=== PATIENT | male | born 1955 | race African-American/Black ===

== ENCOUNTER 2017-09-06 07:55 | Emergency (ER) | payer MEDICARE, MEDICAID ==
[2017-09-06] MEDS: DIPHTH,PERTUSS(ACELL),TET TOX 0.5 ML DISP.SYRIN. VAX IM (08:42)
== END 2017-09-06 09:45 | disposition home or self-care (01) ==
LOC: ER 07:55
DX: S63.610A Unspecified sprain of right index finger, initial encounter (principal); W00.9XXA Unspecified fall due to ice and snow, initial encounter; Y93.89 Activity, other specified; Y92.89 Other specified places as the place of occurrence of the external cause; Y99.8 Other external cause status
CPT/HCPCS: 29130; 73140; 90471; 90715; 99284-25

== ENCOUNTER 2017-11-17 12:03 | Emergency (ER) | payer MEDICARE, MEDICAID ==
[2017-11-17 12:56] LABS: BASO % 0 % (0-3); EOS % 0 % (0-3); HEMATOCRIT 33.9 % (39.0-53.0); HEMOGLOBIN 11.3 g/dL (13.0-17.5); LYMPH # 0.9 x10^3/uL (1.0-4.8); LYMPH % 5 % (24-48); MEAN CORPUSCULAR HEMOGLOBIN 33 pg (25-35); MEAN CORPUSCULAR HGB CONC 33 g/dL (31-37); MEAN CORPUSCULAR VOLUME 97 fL (79-100); MONO # 2.1 x10^3/uL (0.0-1.1); MONO % 11 % (0-9); NEUT # 16.2 x10^3uL (1.8-7.7); NEUT % 84 % (31-73); PLATELET COUNT 277 x10^3/uL (140-400); RED BLOOD COUNT 3.48 x10^6/uL (4.30-5.70); RED CELL DISTRIBUTION WIDTH 12.9 % (11.5-14.5); WHITE BLOOD COUNT 19.3 x10^3/uL (4.0-11.0)
[2017-11-17 12:58] LABS: BILIRUBIN,URINE NEGATIVE (NEG); CLARITY,URINE CLEAR; COLOR,URINE YELLOW; GLUCOSE,URINE NEGATIVE (NEG); NITRITE,URINE NEGATIVE (NEG); PROTEIN,URINE 100 mg/dL (NEG-TRACE)
[2017-11-17] MEDS: ONDANSETRON PF 4 MG/2 ML VIAL. IV (12:58)
[2017-11-17] MEDS: fentaNYL PF VIAL 100 MCG/2 ML VIAL IV (12:58)
[2017-11-17] MEDS: IV NORMAL SALINE 500ML BAG 500 ML IV (12:59)
[2017-11-17] MEDS ORDERED: CONTRAST GIVEN MC (13:00)
[2017-11-17 13:04] LABS: ADD MAN DIFF? YES
[2017-11-17 13:08] LABS: ANION GAP 12 (6-14); BLOOD UREA NITROGEN 15 mg/dL (8-26); BUN/CREATININE RATIO 9 (6-20); CALCIUM 8.9 mg/dL (8.5-10.1); CARBON DIOXIDE 24 mmol/L (21-32); CHLORIDE 98 mmol/L (98-107); CREATININE 1.6 mg/dL (0.7-1.3); GFR 53.3; GLUCOSE 152 mg/dL (70-99); POTASSIUM 3.6 mmol/L (3.5-5.1); SODIUM 134 mmol/L (136-145)
[2017-11-17 13:14] LABS: ALBUMIN 3.2 g/dL (3.4-5.0); ALBUMIN/GLOBULIN RATIO 0.7 (1.0-1.7); ALK PHOS 55 U/L (46-116); ALT (SGPT) 62 U/L (16-63); AST (SGOT) 34 U/L (15-37); LIPASE 160 U/L (73-393); TOTAL BILIRUBIN 0.8 mg/dL (0.2-1.0); TOTAL PROTEIN 8.1 g/dL (6.4-8.2)
[2017-11-17 13:17] LABS: LACTIC ACID 1.2 mmol/L (0.4-2.0)
[2017-11-17 13:18] LABS: TROPONINI < 0.017 ng/mL (0.000-0.055)
[2017-11-17 13:22] LABS: BACTERIA,URINE 0 /HPF (0-FEW); RBC,URINE 0 /HPF (0-2); SQUAMOUS EPITHELIAL CELL,UR FEW /LPF; TRICHOMONAS,URINE PRESENT; WBC,URINE 0 /HPF (0-4)
[2017-11-17] MEDS: IOHEXOL 300 MG/ML 100ML VIAL. IV (13:28)
[2017-11-17 14:07] LABS: % BANDS 14 % (0-9); % BASOS 1 % (0-3); % LYMPHS 3 % (24-48); % MONOS 11 % (0-10); % SEGS 71 % (35-66); PLT ESTIMATE ADEQUATE (ADEQUATE)
[2017-11-17 14:32] LABS: NT-PRO BNP 399 pg/mL (0-124)
[2017-11-17] MEDS: AZITHRMYCN 500MG IVPB FOR OMNI 250 ML IV (14:32)
== END 2017-11-17 15:49 | disposition home or self-care (01) ==
LOC: ER 12:03
DX: J15.9 Unspecified bacterial pneumonia (principal); R10.33 Periumbilical pain; D72.829 Elevated white blood cell count, unspecified; E78.00 Pure hypercholesterolemia, unspecified; I10 Essential (primary) hypertension; I25.10 Atherosclerotic heart disease of native coronary artery without angina pectoris; Z95.5 Presence of coronary angioplasty implant and graft
CPT/HCPCS: 36415; 71045; 74177; 80053; 81001; 83605; 83690; 83880; 84484; 85007; 85025; 93005; 96361; 96365; 96367; 96375; 99285-25; J0456; J0690; J2405; J3010; J7040; Q9967

== ENCOUNTER 2018-08-25 11:48 | Emergency (ER) | payer MEDICARE, MEDICAID ==
[~2018-08-25] VITALS: Ht 177.8 cm; Wt 90.7 kg
[~2018-08-25 11:48] MED LIST: ASPI325T8 PO; CEPH500C PO; CLOP75TA PO; LEVO750T31 PO; LISI-334 PO; SPIR25TA5 PO
[2018-08-25 12:00] VITALS: BP 184/100
[2018-08-25] MEDS ORDERED: ERYT1OIN6 OP (12:20)
--- NOTE | 2018-08-25 12:20 | PHYS DOC ---
Past Medical History Past Medical History: High Cholesterol, Hypertension Past Surgical History: Other Additional Past Surgical Histo: cardiac cath with stent Alcohol Use: Occasionally Drug Use: None Adult General Chief Complaint Chief Complaint: [facility] HPI Patient is a 62 year old male who presents with left bottom lid outer eye right side for the last 2 days. He states his started as a small knot and has gotten bigger. Denies any pain or visual changes. Patient rates his pain a 0 out of 10. No known drug allergies. Review of Systems Review of Systems Constitutional: Denies fever or chills [] Eyes: Denies change in visual acuity, redness, or eye pain. Stye with some swelling to the left lower lid. [] HENT: Denies nasal congestion or sore throat [] Respiratory: Denies cough or shortness of breath [] Cardiovascular: No additional information not addressed in HPI [] GI: Denies abdominal pain, nausea, vomiting, bloody stools or diarrhea [] : Denies dysuria or hematuria [] Musculoskeletal: Denies back pain or joint pain [] Integument: Denies rash or skin lesions [] Neurologic: Denies headache, focal weakness or sensory changes [] Endocrine: Denies polyuria or polydipsia [] All other systems were reviewed and found to be within normal limits, except as documented in this note. Allergies Allergies Allergies Coded Allergies Type Severity Reaction Last Updated Verified No Known Drug Allergies 12/19/15 No Physical Exam Physical Exam Constitutional: Well developed, well nourished, no acute distress, non-toxic appearance. [] HENT: Normocephalic, atraumatic, bilateral external ears normal, oropharynx moist, no oral exudates, nose normal. [] Eyes: PERRLA, EOMI, conjunctiva normal, no discharge.Reddened Stye with some swelling to the left lower lid [] Neck: Normal range of motion, no tenderness, supple, no stridor. [] Cardiovascular:Heart rate regular rhythm, no murmur [] Lungs & Thorax: Bilateral breath sounds clear to auscultation [] Abdomen: Bowel sounds normal, soft, no tenderness, no masses, no pulsatile masses. [] Skin: Warm, dry, no erythema, no rash. [] Back: No tenderness, no CVA tenderness. [] Extremities: No tenderness, no cyanosis, no clubbing, ROM intact, no edema. [] Neurologic: Alert and oriented X 3, normal motor function, normal sensory function, no focal deficits noted. [] Psychologic: Affect normal, judgement normal, mood normal. [] Current Patient Data Vital Signs Vital Signs Date Time Temp Pulse Resp B/P (MAP) Pulse Ox O2 Delivery O2 Flow Rate FiO2 08/25/18 12:00 98.8 90 18 184/100 (128) 98 Room Air 98.8 EKG EKG [] Radiology/Procedures Radiology/Procedures [] Course & Med Decision Making Course & Med Decision Making Patient is a 62 year old male who presents with left bottom lid outer eye right side for the last 2 days. He states his started as a small knot and has gotten bigger. Denies any pain or visual changes. Patient rates his pain a 0 out of 10. No known drug allergies. There is no scleral redness or discharge from the eye. Eye itself does not hurt. Patient is diagnosed with a probable Stye. Patient is told to use warm compress as often as he can eye and use the Erythromycin ointment as prescribed. Patient will follow up with his primary care on Tuesday or return to ED if not getting better. Dragon Disclaimer Dragon Disclaimer This electronic medical record was generated, in whole or in part, using a voice recognition dictation system. Departure Departure Impression: Primary Impression: Hordeolum externum (stye) Disposition: HOME, SELF-CARE Condition: STABLE Referrals: HOWIE GILES MD (PCP) Patient Instructions: Sty Additional Instructions: Use a warm compress. Use medications as prescribed. Follow up with your primary care if not getting better. Scripts Erythromycin Base (Erythromycin) 1 Gm Oint...g. 1 GM OP 6XDAY for 7 Days, #1 MISC Prov: MERRILL MEMBRENO MANAGER OF PHOTOGRAPHY 08/25/18 Problem Qualifiers Primary Impression: Hordeolum externum (stye) Laterality: left Eyelid: lower Qualified Codes: H00.015 - Hordeolum externum left lower eyelid MERRILL MEMBRENO APRN Aug 25, 2018 12:20
== END 2018-08-25 12:30 | disposition home or self-care (01) ==
LOC: ER 11:48
DX: H00.015 Hordeolum externum left lower eyelid (principal); E78.00 Pure hypercholesterolemia, unspecified; I10 Essential (primary) hypertension
CPT/HCPCS: 99283

== ENCOUNTER 2019-09-20 15:08 | Emergency (ER) | payer MEDICARE, MEDICAID ==
[~2019-09-20] VITALS: Ht 177.8 cm; Wt 45.5 kg
[~2019-09-20 15:08] MED LIST changes: +ERYT1OIN6 OP
[2019-09-20] MEDS ORDERED: LABETALOL 20 MG/4 ML DISP.SYRIN. IVP ONE (15:45)
[2019-09-20] MEDS ORDERED: ONDANSETRON PF 4 MG/2 ML VIAL. IVP ONE (15:45)
[2019-09-20] MEDS ORDERED: FAMOTIDINE 20 MG/2 ML VIAL IVP ONE (15:45)
[2019-09-20] MEDS ORDERED: MORPHINE SULFATE 2 MG/ML VIAL. IV/SQ PRN (15:45)
[2019-09-20 15:54] LABS: BARBITURATES NEG (NEG); BENZODIAZEPINES NEG (NEG); CANNABINOIDS POS (NEG); COCAINE NEG (NEG); METHADONE NEG (NEG); OPIATES NEG (NEG); PHENCYCLIDINE NEG (NEG)
[2019-09-20 15:56] LABS: AMPHETAMINE/METHAMPHETAMINE NEG (NEG); BILIRUBIN,URINE SMALL (NEG); CLARITY,URINE CLEAR; COLOR,URINE AMBER; NITRITE,URINE NEGATIVE (NEG); PH,URINE 6.5; PROTEIN,URINE >=300 mg/dL (NEG-TRACE)
[2019-09-20 16:04] LABS: BACTERIA,URINE 0 /HPF (0-FEW); RBC,URINE RARE /HPF (0-2); WBC,URINE 0 /HPF (0-4)
--- NOTE | 2019-09-20 16:06 | EKG ---
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
[2019-09-20 16:11] LABS: BASO # 0.1 x10^3/uL (0.0-0.2); BASO % 1 % (0-3); EOS # 0.1 x10^3/uL (0.0-0.7); EOS % 2 % (0-3); HEMOGLOBIN 13.9 g/dL (13.0-17.5); LYMPH # 1.2 x10^3/uL (1.0-4.8); LYMPH % 15 % (24-48); MEAN CORPUSCULAR HEMOGLOBIN 33 pg (25-35); MEAN CORPUSCULAR HGB CONC 33 g/dL (31-37); MEAN CORPUSCULAR VOLUME 99 fL (79-100); MONO # 0.9 x10^3/uL (0.0-1.1); MONO % 11 % (0-9); NEUT # 5.7 x10^3/uL (1.8-7.7); NEUT % 71 % (31-73); PLATELET COUNT 256 x10^3/uL (140-400); RED BLOOD COUNT 4.25 x10^6/uL (4.30-5.70); RED CELL DISTRIBUTION WIDTH 13.7 % (11.5-14.5); WHITE BLOOD COUNT 8.1 x10^3/uL (4.0-11.0)
[2019-09-20 16:22] LABS: PROTHROMBIN TIME PATIENT 15.8 SEC (11.7-14.0)
[2019-09-20 16:27] LABS: CALCIUM 8.7 mg/dL (8.5-10.1); CREATININE 1.5 mg/dL (0.7-1.3); POTASSIUM 4.1 mmol/L (3.5-5.1)
[2019-09-20] MEDS ORDERED: IOHEXOL 300 MG/ML 100ML VIAL. IV ONE (16:30)
[2019-09-20 16:32] LABS: MAGNESIUM 1.9 mg/dL (1.8-2.4); TOTAL PROTEIN 6.1 g/dL (6.4-8.2)
[2019-09-20] MEDS ORDERED: CONTRAST GIVEN. MC PRN (16:45)
[2019-09-20 16:52] VITALS: BP 141/99
--- NOTE | 2019-09-20 17:10 | RAD ---
Exam: CT abdomen and pelvis with contrast INDICATION: Abdominal pain, distention TECHNIQUE: Sequential axial images through the abdomen and pelvis obtained following the administration of 60 mL of Omni 300 IV contrast. Sagittal and coronal reformatted images were reconstructed from the axial data and reviewed. Comparisons: 11/17/2017 FINDINGS: Heart is enlarged. No pericardial effusion. Mild groundglass centrilobular opacities are noted at the lung bases. There is a trace right-sided pleural effusion. Diffuse hepatic steatosis. Spleen, pancreas, and gallbladder are unremarkable. There is nodular thickening of the adrenal glands bilaterally greater on the left, which is stable in appearance compared study in 2018 however incompletely characterized on this exam. Kidneys demonstrate symmetric enhancement. No perinephric inflammation or hydronephrosis. No renal or ureteral calculi are identified. Bladder is decompressed not well evaluated. Prostate is mildly enlarged. Few scattered diverticula are noted throughout the colon without evidence of acute diverticulitis. Appendix is normal. Remainder of the large and small bowel are unremarkable. There is trace free fluid in the pelvis. No free intra-abdominal air. Abdominal aorta has a normal course and caliber. Exam is predominantly in the arterial phase with reflux of contrast noted into the intrahepatic IVC and hepatic veins. No suspicious osseous lesions or acute fractures. IMPRESSION: 1. There is trace free fluid in the abdomen, which is nonspecific and overall given the other findings is favored to be related to a degree of volume overload. The possibility of free fluid secondary to a nonvisualized inflammatory process is possible. Correlate with symptomatology and if symptoms persist or worsen repeat imaging can be performed. 2. This exam is in the arterial phase despite delayed imaging. Additionally there is reflux of contrast into the intrahepatic IVC and hepatic veins from the heart. This is indicative of heart failure. 3. Subtle centrilobular Groundglass opacity at the lung bases and a trace right-sided pleural effusion favored to represent pulmonary edema. An atypical infectious process is difficult to exclude. 4. Hepatic steatosis. 5. Diverticulosis without evidence of acute diverticulitis. 6. Bilateral adrenal nodules which are stable when compared to study in 2018 however incompletely characterized on this study. Exposure: One or more of the following in the visualized dose reduction techniques were utilized for this examination: 1. Automated exposure control 2. Adjustment of the MA and/or KV according to patient size 3. Use of iterative of reconstructive technique Electronically signed by: Carlee Garcia MD (09/20/2019 5:07 PM) [facility]
--- NOTE | 2019-09-20 17:33 | PHYS DOC ---
Past Medical History Past Medical History: CAD, High Cholesterol, Hypertension Past Surgical History: Other Additional Past Surgical Histo: cardiac cath with stent Alcohol Use: Occasionally Drug Use: None Adult General Chief Complaint Chief Complaint: ABDOMINAL PAIN HPI HPI Patient is a 64 year old male with history of hypertension, high cholesterol, non cardiac cardiomyopathy, CHF, stent placement over 5 years ago who presents to the ED today complaining of intermittent episodes of abdominal distention, discomfort, patient states symptoms have been going on for 2 weeks. She denies any pain he states the abdomen just feels swollen, denies any nausea vomiting or constipation. Denies any exacerbating or relieving factors. He reports right now he is on Xareltro and lisinopril and follows up with Dr. Barahona who he reports sore him a week ago. Review of Systems Review of Systems Constitutional: Denies fever or chills [] Eyes: Denies change in visual acuity, redness, or eye pain [] HENT: Denies nasal congestion or sore throat [] Respiratory: Denies cough or shortness of breath [] Cardiovascular: No additional information not addressed in HPI [] GI: Reports abdominal distention, denies nausea, vomiting, bloody stools or diarrhea [] : Denies dysuria or hematuria [] Musculoskeletal: Denies back pain or joint pain [] Integument: Denies rash or skin lesions [] Neurologic: Denies headache, focal weakness or sensory changes [] All other systems were reviewed and found to be within normal limits, except as documented in this note. Current Medications Current Medications Current Medications Medications (Trade) Dose Ordered Sig/[place] Start Time Stop Time Status Last Admin Dose Admin Famotidine (Pepcid Vial) 20 mg 1X ONCE 09/20/19 15:45 09/20/19 15:46 DC 09/20/19 16:04 20 MG Info (CONTRAST GIVEN -- Rx MONITORING) 1 each PRN DAILY PRN 09/20/19 16:45 09/20/19 18:21 DC Iohexol (Omnipaque 300 Mg/ml) 60 ml 1X ONCE 09/20/19 16:30 09/20/19 16:31 DC 09/20/19 16:38 60 ML Labetalol HCl (Normodyne Iv Push) 10 mg 1X ONCE 09/20/19 15:45 09/20/19 15:46 DC 09/20/19 16:21 10 MG Morphine Sulfate (Morphine Sulfate) 2 mg PRN Q15MIN PRN 09/20/19 15:45 09/20/19 18:21 DC 09/20/19 16:02 2 MG Ondansetron HCl (Zofran) 4 mg 1X ONCE 09/20/19 15:45 09/20/19 15:46 DC 09/20/19 16:01 4 MG Allergies Allergies Allergies Coded Allergies Type Severity Reaction Last Updated Verified No Known Drug Allergies 12/19/15 No Physical Exam Physical Exam Constitutional: Well developed, well nourished, no acute distress, non-toxic appearance. [] HENT: Normocephalic, atraumatic, bilateral external ears normal, oropharynx moist, no oral exudates, nose normal. [] Eyes: PERRLA, EOMI, conjunctiva normal, no discharge. [] Neck: Normal range of motion, no tenderness, supple, no stridor. [] Cardiovascular:Heart rate regular rhythm, no murmur [] Lungs & Thorax: Bilateral breath sounds clear to auscultation [] Abdomen: Rounded distended abdomen. Bowel sounds normal, soft, no tenderness, no masses, no pulsatile masses. [] Skin: Warm, dry, no erythema, no rash. [] Back: No tenderness, no CVA tenderness. [] Extremities: No tenderness, no cyanosis, no clubbing, ROM intact, no edema. [] Neurologic: Alert and oriented X 3, normal motor function, normal sensory function, no focal deficits noted. [] Psychologic: Affect normal, judgement normal, mood normal. [] Current Patient Data Vital Signs Vital Signs Date Time Temp Pulse Resp B/P (MAP) Pulse Ox O2 Delivery O2 Flow Rate FiO2 09/20/19 16:52 84 18 141/99 (113) 99 Room Air 09/20/19 15:38 97.4 97.4 Lab Values Laboratory Tests Test 09/20/19 15:26 09/20/19 16:00 Urine Collection Type Void Urine Color Rachel Urine Clarity Clear Urine pH 6.5 Urine Specific [place] >=1.030 Urine Protein >=300 mg/dL (NEG-TRACE) Urine Glucose (UA) Negative mg/dL (NEG) Urine Ketones (Stick) Negative mg/dL (NEG) Urine Blood Negative (NEG) Urine Nitrite Negative (NEG) Urine Bilirubin Small (NEG) Urine Urobilinogen Dipstick 1.0 mg/dL (0.2 mg/dL) Urine Leukocyte Esterase Negative (NEG) Urine RBC Rare /HPF (0-2) Urine WBC 0 /HPF (0-4) Urine Squamous Epithelial Cells None /LPF Urine Bacteria 0 /HPF (0-FEW) Urine Mucus Slight /LPF Urine Opiates Screen Neg (NEG) Urine Methadone Screen Neg (NEG) Urine Barbiturates Neg (NEG) Urine Phencyclidine Screen Neg (NEG) Urine Amphetamine/Methamphetamine Neg (NEG) Urine Benzodiazepines Screen Neg (NEG) Urine Cocaine Screen Neg (NEG) Urine Cannabinoids Screen Pos (NEG) Urine Ethyl Alcohol Neg (NEG) White Blood Count 8.1 x10^3/uL (4.0-11.0) Red Blood Count 4.25 x10^6/uL (4.30-5.70) L Hemoglobin 13.9 g/dL (13.0-17.5) Hematocrit 42.0 % (39.0-53.0) Mean Corpuscular Volume 99 fL (79-100) Mean Corpuscular Hemoglobin 33 pg (25-35) Mean Corpuscular Hemoglobin Concent 33 g/dL (31-37) Red Cell Distribution Width 13.7 % (11.5-14.5) Platelet Count 256 x10^3/uL (140-400) Neutrophils (%) (Auto) 71 % (31-73) Lymphocytes (%) (Auto) 15 % (24-48) L Monocytes (%) (Auto) 11 % (0-9) H Eosinophils (%) (Auto) 2 % (0-3) Basophils (%) (Auto) 1 % (0-3) Neutrophils # (Auto) 5.7 x10^3/uL (1.8-7.7) Lymphocytes # (Auto) 1.2 x10^3/uL (1.0-4.8) Monocytes # (Auto) 0.9 x10^3/uL (0.0-1.1) Eosinophils # (Auto) 0.1 x10^3/uL (0.0-0.7) Basophils # (Auto) 0.1 x10^3/uL (0.0-0.2) Prothrombin Time 15.8 SEC (11.7-14.0) H Prothrombin Time INR 1.3 (0.8-1.1) H Activated Partial Thromboplast Time 29 SEC (24-38) Sodium Level 141 mmol/L (136-145) Potassium Level 4.1 mmol/L (3.5-5.1) Chloride Level 104 mmol/L (98-107) Carbon Dioxide Level 27 mmol/L (21-32) Anion Gap 10 (6-14) Blood Urea Nitrogen 18 mg/dL (8-26) Creatinine 1.5 mg/dL (0.7-1.3) H Estimated GFR (Cockcroft-Gault) 57.0 BUN/Creatinine Ratio 12 (6-20) Glucose Level 129 mg/dL (70-99) H Calcium Level 8.7 mg/dL (8.5-10.1) Magnesium Level 1.9 mg/dL (1.8-2.4) Total Bilirubin 1.0 mg/dL (0.2-1.0) Aspartate Amino Transferase (AST) 35 U/L (15-37) Alanine Aminotransferase (ALT) 63 U/L (16-63) Alkaline Phosphatase 66 U/L (46-116) Creatine Kinase 260 U/L (39-308) Creatine Kinase MB (Mass) 3.3 ng/mL (0.0-3.6) Creatine Kinase MB Relative Index 1.3 % (0-4) Troponin I Quantitative 0.183 ng/mL (0.000-0.055) FD-Isn-W-Type Natriuretic Peptide 2306 pg/mL (0-124) H Total Protein 6.1 g/dL (6.4-8.2) L Albumin 3.0 g/dL (3.4-5.0) L Albumin/Globulin Ratio 1.0 (1.0-1.7) Lipase 177 U/L (73-393) Thyroid Stimulating Hormone (TSH) 2.712 uIU/mL (0.358-3.74) Laboratory Tests 09/20/19 16:00 Laboratory Tests 09/20/19 16:00 EKG EKG [address] Leonard sinus tachycardia HR 111 no STEMI[] Radiology/Procedures Radiology/Procedures []PROCEDURE: CT ABD PELV W/ IV CONTRST ONLY Exam: CT abdomen and pelvis with contrast INDICATION: Abdominal pain, distention TECHNIQUE: Sequential axial images through the abdomen and pelvis obtained following the administration of 60 mL of Omni 300 IV contrast. Sagittal and coronal reformatted images were reconstructed from the axial data and reviewed. Comparisons: 11/17/2017 FINDINGS: Heart is enlarged. No pericardial effusion. Mild groundglass centrilobular opacities are noted at the lung bases. There is a trace right-sided pleural effusion. Diffuse hepatic steatosis. Spleen, pancreas, and gallbladder are unremarkable. There is nodular thickening of the adrenal glands bilaterally greater on the left, which is stable in appearance compared study in 2018 however incompletely characterized on this exam. Kidneys demonstrate symmetric enhancement. No perinephric inflammation or hydronephrosis. No renal or ureteral calculi are identified. Bladder is decompressed not well evaluated. Prostate is mildly enlarged. Few scattered diverticula are noted throughout the colon without evidence of acute diverticulitis. Appendix is normal. Remainder of the large and small bowel are unremarkable. There is trace free fluid in the pelvis. No free intra-abdominal air. Abdominal aorta has a normal course and caliber. Exam is predominantly in the arterial phase with reflux of contrast noted into the intrahepatic IVC and hepatic veins. No suspicious osseous lesions or acute fractures. IMPRESSION: 1. There is trace free fluid in the abdomen, which is nonspecific and overall given the other findings is favored to be related to a degree of volume overload. The possibility of free fluid secondary to a nonvisualized inflammatory process is possible. Correlate with symptomatology and if symptoms persist or worsen repeat imaging can be performed. 2. This exam is in the arterial phase despite delayed imaging. Additionally there is reflux of contrast into the intrahepatic IVC and hepatic veins from the heart. This is indicative of heart failure. 3. Subtle centrilobular Groundglass opacity at the lung bases and a trace right-sided pleural effusion favored to represent pulmonary edema. An atypical infectious process is difficult to exclude. 4. Hepatic steatosis. 5. Diverticulosis without evidence of acute diverticulitis. 6. Bilateral adrenal nodules which are stable when compared to study in 2018 however incompletely characterized on this study. Exposure: One or more of the following in the visualized dose reduction techniques were utilized for this examination: 1. Automated exposure control 2. Adjustment of the MA and/or KV according to patient size 3. Use of iterative of reconstructive technique Electronically signed by: Carlee Martin MD (09/20/2019 5:07 PM) [facility] DICTATED and SIGNED BY: CARLEE MARTIN MD DATE: 09/20/19 8762 Course & Med Decision Making Course & Med Decision Making Pertinent Labs and Imaging studies reviewed. (See chart for details) This is a 64-year-old male patient presenting to the ED today complaining of abdominal discomfort/distention, symptoms for 2 weeks. Patient denies any chest pain. CBC with a normal WBC, CMP with creatinine of 1.5, BUN is normal. Creatinine is around patient's baseline. Troponin is 0.183, EKG was negative, patient has no chest pain, currently on Xareltro for CAD. [id number]. I talked to Dr. Patino regarding his troponin in assumption he will accept admission. CT of the abdomen and pelvic was noted for nonspecific trace amount of free fl uid in the abdomen possibly secondary to inflammation process or fluid overload. Patient reports history of fluid overload, he reports he used to be on a water pill but was discontinued by cardiology, CT also noted for heart failure, diverticulosis, hepatic stenosis. Patient was offered admission to the hospital, he completely refused. He states he can call his own doctor tomorrow morning and follow-up. Dragon Disclaimer Dragon Disclaimer This electronic medical record was generated, in whole or in part, using a voice recognition dictation system. Departure Departure Impression: Primary Impression: CHF (congestive heart failure) Additional Impressions: Abdominal pain NSTEMI (non-ST elevated myocardial infarction) Disposition: HOME, SELF-CARE Condition: STABLE Referrals: HOWIE GILES MD (PCP) follow up as soon as you can Patient Instructions: Abdominal Pain (Nonspecific), Heart Failure, [id number] Additional Instructions: You were evaluated in the emergency room for abdominal pain, you have congestive heart failure. Please call the [facility] specialist tomorrow morning and set up a follow-up appointment. Problem Qualifiers Primary Impression: CHF (congestive heart failure) Heart failure type: unspecified Heart failure chronicity: unspecified Qualified Codes: I50.9 - Heart failure, unspecified Additional Impressions: Abdominal pain Abdominal location: generalized Qualified Codes: R10.84 - Generalized abdominal pain TUTU VALDEZ JAME Sep 20, 2019 17:33
== END 2019-09-20 18:21 | disposition home or self-care (01) ==
LOC: ER 15:08
DX: I21.4 Non-ST elevation (NSTEMI) myocardial infarction (principal); I50.9 Heart failure, unspecified; I11.0 Hypertensive heart disease with heart failure; R10.84 Generalized abdominal pain; E78.00 Pure hypercholesterolemia, unspecified; I25.10 Atherosclerotic heart disease of native coronary artery without angina pectoris; Z95.5 Presence of coronary angioplasty implant and graft
CPT/HCPCS: 36415; 74177; 80053; 80307; 81001; 82553; 83690; 83735; 83880; 84443; 84484; 85025; 85610; 85730; 93005; 96374; 96375; 99285; J2270; J2405; J3490; Q9967; 96372

== ENCOUNTER 2020-05-04 11:01 | Emergency (ER) | payer MEDICARE, MEDICAID ==
[~2020-05-04] VITALS: Ht 175.3 cm; Wt 97.2 kg
[~2020-05-04 11:01] MED LIST changes: +AMLO5TAB10 PO; +ATOR20TA58 PO; +FURO40TA4 PO; +METO-247 PO; +POTA20TA4 PO; +RIVA10TA PO
[2020-05-04 12:04] VITALS: BP 171/81
--- NOTE | 2020-05-04 12:47 | RAD ---
HIP RIGHT 2V WITH PELVIS History: Reason: pain / Spl. Instructions: / History: Technique: AP view the pelvis and 2 additional views of the right hip Comparison: None. Findings: Normal alignment. No fracture. Soft tissues unremarkable. Mild left hip DJD. Impression: 1. No acute osseous abnormality. Electronically signed by: Beto Carter DO (05/04/2020 12:44 PM) [facility]
--- NOTE | 2020-05-04 13:08 | PHYS DOC ---
Past Medical History Past Medical History: CAD, DVT, High Cholesterol, Hypertension Past Surgical History: Other Additional Past Surgical Histo: cardiac cath with stent, STENT FOR DVT RLE Smoking Status: Never Smoker Alcohol Use: Occasionally Drug Use: None General Adult EDM: Chief Complaint: HIP PAIN HPI: HPI: Patient is a 64 year old male with history of high cholesterol, hypertension, CAD with stent placement through the right lower extremity a couple years ago, DVT who presents the ED today complaining of 6 out of 10 right hip pain r adiating to the right calf, pain began yesterday. Patient states the pain is worse on twisting or turning around. Patient denies anything specifically relieving the pain, describes the pain as sharp. He states the pain is intermittent. He is concerned he could have a DVT considering his previous medical history of DVT. He states he is currently on a blood thinner but does not remember the name Review of Systems: Review of Systems: Constitutional: Denies fever or chills. [] Eyes: Denies change in visual acuity. [] HENT: Denies nasal congestion or sore throat. [] Respiratory: Denies cough or shortness of breath. [] Cardiovascular: Denies chest pain or edema. [] GI: Denies abdominal pain, nausea, vomiting, bloody stools or diarrhea. [] : Denies dysuria. [] Musculoskeletal: Reports right rib pain radiating to the right calf Integument: Denies rash. [] Neurologic: Denies headache, focal weakness or sensory changes. [] Psychiatric: Denies depression or anxiety. [] Heart Score: Risk Factors: Risk Factors: DM, Current or recent (<one month) smoker, HTN, HLP, family history of CAD, obesity. Risk Scores: Score 0 - 3: 2.5% MACE over next 6 weeks - Discharge Home Score 4 - 6: 20.3% MACE over next 6 weeks - Admit for Clinical Observation Score 7 - 10: 72.7% MACE over next 6 weeks - Early Invasive Strategies Allergies: Allergies: Allergies Coded Allergies Type Severity Reaction Last Updated Verified No Known Drug Allergies 12/19/15 No Physical Exam: PE: Constitutional: Well developed, well nourished, no acute distress, non-toxic appearance. [] HENT: Normocephalic, atraumatic, bilateral external ears normal, oropharynx moist, no oral exudates, nose normal. [] Eyes: PERRLA, EOMI, conjunctiva normal, no discharge. [] Neck: Normal range of motion, no tenderness, supple, no stridor. [] Cardiovascular:Heart rate regular rhythm, no murmur [] Lungs & Thorax: Bilateral breath sounds clear to auscultation [] Abdomen: Bowel sounds normal, soft, no tenderness, no masses, no pulsatile masses. [] Skin: Warm, dry, no erythema, no rash. [] Back: No tenderness, no CVA tenderness. [] Extremities: Right lower extremity with no obvious deformity, full range of motion to the right lower extremity, negative Homans sign to the right lower extremity. +2 bilateral pedal pulses. Tenderness on palpation of the right lateral hip. Neurologic: Alert and oriented X 3, normal motor function, normal sensory function, no focal deficits noted. [] Psychologic: Affect normal, judgement normal, mood normal. [] Current Patient Data: Vital Signs: Vital Signs Date Time Temp Pulse Resp B/P (MAP) Pulse Ox O2 Delivery O2 Flow Rate FiO2 05/04/20 12:04 97.9 74 18 171/81 (111) 97 Room Air 97.9 EKG: EKG: [] Radiology/Procedures: Radiology/Procedures: []PROCEDURE: VENOUS LOWER EXTREMITY RIGHT VENOUS LOWER EXTREMITY RIGHT 05/04/2020 12:08 PM Clinical Information: Pain in the right lower extremity Comparison: None. Technique: Multiple grayscale, color Doppler, and spectral Doppler sonographic images of the lower extremity venous structures were obtained. Findings: The right common femoral, femoral, and popliteal veins exhibit normal compression, respiratory phasicity, and augmentation. No intraluminal thrombi are identified. Color Doppler flow is demonstrated in the right posterior tibial veins. Greater saphenous vein patent at the saphenofemoral junction. Impression: 1. No evidence of deep venous thrombosis. Electronically signed by: Dave Hebert MD (05/04/2020 2:05 PM) [facility] DICTATED and SIGNED BY: DAVE HEBERT MD DATE: 05/04/20 1405 PROCEDURE: HIP RIGHT 2V WITH PELVIS HIP RIGHT 2V WITH PELVIS History: Reason: pain / Spl. Instructions: / History: Technique: AP view the pelvis and 2 additional views of the right hip Comparison: None. Findings: Normal alignment. No fracture. Soft tissues unremarkable. Mild left hip DJD. Impression: 1. No acute osseous abnormality. Electronically signed by: Beto Carter DO (05/04/2020 12:44 PM) [facility] DICTATED and SIGNED BY: BETO CARTER DO DATE: 05/04/20 1244 Course & Med Decision Making: Course & Med Decision Making Pertinent Labs and Imaging studies reviewed. (See chart for details) This is a 64-year-old male patient presenting to the ED today with complaints of right hip pain radiating to the right calf. Patient concerned about DVT. Has history of DVT. Venous Doppler of the right lower extremity is negative for any acute findings, right hip x-rays including pelvis are negative. Patient was discharged to home. Follow-up with PCP in 1 week. Araseli Disclaimer: Araseli Disclaimer: This electronic medical record was generated, in whole or in part, using a voice recognition dictation system. Departure Departure Impression: Primary Impression: Right hip pain Additional Impression: Lower extremity pain, right Disposition: HOME, SELF-CARE Condition: STABLE Referrals: HOWIE GILES MD (PCP) Follow-up in 1 to 2 weeks Patient Instructions: Hip Pain Additional Instructions: You were evaluated in the emergency room for right lower extremity pain. Your venous Doppler of the right lower extremity was negative for DVT. Your x-ray of the right hip was negative for any acute findings. Try to ice and elevate the extremity. Follow-up with your doctor in the course of this week. Scripts Cyclobenzaprine Hcl (CYCLOBENZAPRINE HCL) 10 Mg Tablet 1 TAB PO TID, #30 TAB Prov: TUTU VALDEZ APRN 05/04/20 Justicifation of Admission Dx: Justifications for Admission: Justification of Admission Dx: N/A TUTU VALDEZ APRN May 04, 2020 13:08
--- NOTE | 2020-05-04 14:08 | RAD ---
VENOUS LOWER EXTREMITY RIGHT 05/04/2020 12:08 PM Clinical Information: Pain in the right lower extremity Comparison: None. Technique: Multiple grayscale, color Doppler, and spectral Doppler sonographic images of the lower extremity venous structures were obtained. Findings: The right common femoral, femoral, and popliteal veins exhibit normal compression, respiratory phasicity, and augmentation. No intraluminal thrombi are identified. Color Doppler flow is demonstrated in the right posterior tibial veins. Greater saphenous vein patent at the saphenofemoral junction. Impression: 1. No evidence of deep venous thrombosis. Electronically signed by: Faith Wright MD (05/04/2020 2:05 PM) MARRY
[2020-05-04] MEDS ORDERED: CYCL10TA2 PO (14:15)
== END 2020-05-04 14:15 | disposition home or self-care (01) ==
LOC: ER 11:01
DX: M25.551 Pain in right hip (principal); M79.604 Pain in right leg; I11.9 Hypertensive heart disease without heart failure; E78.00 Pure hypercholesterolemia, unspecified; Z98.890 Other specified postprocedural states; Z86.718 Personal history of other venous thrombosis and embolism
CPT/HCPCS: 73502; 93971; 99284

== ENCOUNTER → 2020-06-27 | Outpatient (CLI) | payer MEDICARE, MEDICAID ==
[~2020-06-27] MED LIST changes: +AMLO-186 PO; -AMLO5TAB10 PO; +CYCL10TA2 PO
[2020-06-27 13:52] LABS: CALCIUM 9.5 mg/dL (8.5-10.1); CREATININE 1.4 mg/dL (0.7-1.3); GFR 61.7; POTASSIUM 4.7 mmol/L (3.5-5.1)
== END ==
LOC: LAB 13:01
DX: I50.22 Chronic systolic (congestive) heart failure (principal)
CPT/HCPCS: 36415; 80048

== ENCOUNTER 2021-03-27 08:45 | Emergency (ER) | payer OTHER, MEDICARE, MEDICAID ==
[~2021-03-27] VITALS: Ht 175.3 cm; Wt 103.0 kg
[~2021-03-27 08:45] MED LIST changes: -LISI-334 PO; +LISI20TA18 PO
[2021-03-27 09:29] VITALS: BP 192/104
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
--- NOTE | 2021-03-27 11:20 | RAD ---
Three-view thoracic spine series Clinical indications: Mid thoracic spine pain. FINDINGS: No compression fracture or discitis or lytic process is evident. There is mild degenerative spurring of the endplates of the thoracic spine. Radiopaque device is seen within the heart. IMPRESSION: No acute compression fracture. Electronically signed by: Agapito Royal MD (03/27/2021 11:18 AM) [id number]
[2021-03-27] MEDS ORDERED: CYCL10TA2 PO (11:51)
[2021-03-27] MEDS ORDERED: LIDO1ADH78 TP (11:51)
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
== END 2021-03-27 12:05 | disposition home or self-care (01) ==
LOC: ER 08:45
DX: S29.012A Strain of muscle and tendon of back wall of thorax, initial encounter (principal); M54.6 Pain in thoracic spine; I10 Essential (primary) hypertension; E78.00 Pure hypercholesterolemia, unspecified; I25.10 Atherosclerotic heart disease of native coronary artery without angina pectoris; Z86.718 Personal history of other venous thrombosis and embolism; Z95.5 Presence of coronary angioplasty implant and graft; V49.49XA Driver injured in collision with other motor vehicles in traffic accident, initial encounter; Y93.89 Activity, other specified; Y99.8 Other external cause status; Y92.488 Other paved roadways as the place of occurrence of the external cause
CPT/HCPCS: 72072; 73030; 99284